=== PATIENT | female | born 1975 | race Caucasian/White ===

== ENCOUNTER 2020-02-05 01:05 | Emergency (ER) | payer MEDICAID ==
[~2020-02-05] VITALS: Ht 160 cm; Wt 72.6 kg
[2020-02-05 01:20] VITALS: BP 157/96
--- NOTE | 2020-02-05 01:28 | NUR ---
pt ambulated to ed restroom with steady gait
--- NOTE | 2020-02-05 01:37 | NUR ---
LAB AT BEDSIDE.
--- NOTE | 2020-02-05 01:38 | NUR ---
UA GIVEN TO LAB.
--- NOTE | 2020-02-05 01:41 | NUR ---
39 YO F BIB SELF WITH C/C OF 12/19 RLQ ABD PAIN X5DAYS. PT STATED PAIN STARTED 01/30 AND WENT AWAY AFTER TAKING DICYCLOMINE PRESCRIBED BY PRIMARY PROVIDER; PAIN RETURNED 02/03 AT 8PM. PT STATED SHE TOOK IBUPROFEN WITHOUT RELIEF. +DIARRHEA, -FEVER, +DIZZINESS, -CHILLS. ABD FLAT. BOWEL SOUNDS ACTIVE X3, RLQ BOWEL SOUNDS DECREASED. PAIN ON PALPATION TO RLQ. PT STATED SHE FEELS THE NEED TO URINATE BUT IS UNABLE, DENIES BLOOD IN URINE. ON MONITOR AND PULSE OX. BED LOCKED IN LOWEST POSITION, SIDE RIALS X2. HX: DENIES RX: DICYCLOMINE, OMEPRAZOLE NKA LMP: 01/20/20
[2020-02-05 01:46] LABS: APPEARANCE,URINE SL CLOUDY (CLEAR); BILIRUBIN,URINE NEGATIVE (NEGATIVE); BLOOD, URINE 1+ (NEGATIVE); COLOR,URINE YELLOW (YELLOW); LEUKOCYTE ESTERASE ,URINE NEGATIVE (NEGATIVE); NITRITE, URINE NEGATIVE (NEGATIVE); PH,URINE 6.5 (5.0-9.0); UGLUCOSE NEGATIVE (NEGATIVE)
[2020-02-05 01:48] LABS: BASOPHILS % (AUTO) 0.4 % (0.0-2.0); EOSINOPHILS # (AUTO) 0.1 K/uL (0-0.4); EOSINOPHILS % (AUTO) 0.9 % (0.0-4.0); HEMATOCRIT 40.3 % (36-48); HEMOGLOBIN 13.4 g/dL (12.0-16.0); LYMPHOCYTES # (AUTO) 1.2 K/uL (2.5-16.5); MEAN CORPUSCULAR HEMOGLOBIN 28 pg (27-31); MEAN CORPUSCULAR HGB CONC 33 g/dL (33-37); MEAN CORPUSCULAR VOLUME 82.7 fL (80-94); MONOCYTES # (AUTO) 0.7 K/uL (0.8-1.0); MONOCYTES % (AUTO) 6.5 % (1.7-9.3); NEUTROPHILS # (AUTO) 8.2 K/uL (1.8-7.7); NEUTROPHILS % (AUTO) 80.2 % (42.2-75.2); PLATELET COUNT (AUTO) 286 K/uL (140-450); RED BLOOD CELL COUNT(AUTO) 4.87 MIL/uL (4.20-5.40); RED CELL DISTRIBUTION WIDTH 13.1 % (11.6-13.7); WHITE BLOOD COUNT (AUTO) 10.2 K/uL (4.8-10.8)
[2020-02-05] MEDS ORDERED: ONDANSETRON 4 MG/2 ML VIAL IVP ONE (02:00)
[2020-02-05] MEDS ORDERED: MORPHINE SULFATE 4 MG/ML SYR IVP ONE (02:00)
[2020-02-05 02:16] LABS: ALBUMIN 4.2 g/dL (3.4-5.0); ANION GAP 15.6 (8-16); CARBON DIOXIDE 23.8 mmol/L (21-32); CREATININE 1.2 mg/dL (0.6-1.3); POTASSIUM 3.4 mmol/L (3.5-5.1); TOTAL BILIRUBIN 0.4 mg/dL (0.0-1.0)
[2020-02-05 02:17] LABS: WBC,URINE 0-5 /HPF (0-5)
--- NOTE | 2020-02-05 02:44 | NUR ---
ROHAN SALGADO AT BEDSIDE
--- NOTE | 2020-02-05 02:48 | NUR ---
ERMD AT BEDSIDE FOR RE-EVALUATION
[2020-02-05] MEDS ORDERED: NACL 0.9% 1,000 ML IV ONE (02:50)
--- NOTE | 2020-02-05 02:53 | NUR ---
pt ambulated to the ed restroom with a steady gait
--- NOTE | 2020-02-05 02:56 | NUR ---
PT RETURNED FROM RR WITH STEADY GAIT. PT TAKEN TO CT VIA WHEELCHAIR.
--- NOTE | 2020-02-05 03:04 | NUR ---
pt returned from ct via w/c
--- NOTE | 2020-02-05 03:42 | NUR ---
PT AMBULATED TO ED RESTROOM WITH STEADY GAIT
--- NOTE | 2020-02-05 03:50 | NUR ---
PT AMBULATED BACK TO ED BED 11 FROM ED RESTROOM WITH STEADY GAIT
--- NOTE | 2020-02-05 03:50 | NUR ---
Note carole in EDM - 02/05/20 at 0350 by [facility] AMBULATED BACK TO ED BED 11 FROM ED RESTROOM WITH STEADY GAIT
--- NOTE | 2020-02-05 04:11 | NUR ---
ERMD AT BEDSIDE FOR RE-EVALUATION
[2020-02-05 04:32] VITALS: BP 135/77
--- NOTE | 2020-02-05 04:32 | NUR ---
Patient discharged with v/s stable. Written and verbal after care instructions given and explained. Patient verbalized understanding. Ambulatory with steady gait. All questions addressed prior to discharge. Advised to follow up with PMD.
== END 2020-02-05 04:32 | disposition home or self-care (01) ==
LOC: MED 01:05
DX: R10.31 Right lower quadrant pain (principal); N20.0 Calculus of kidney
CPT/HCPCS: 36415; 74176; 80053; 81001; 82150; 83690; 84703; 85025; 96361; 96374; 96375; 99285; J2270; J2405; J7030; 99284

== ENCOUNTER 2021-08-09 19:48 | Emergency (ER) | payer MEDICAID ==
[~2021-08-09] VITALS: Ht 157.5 cm; Wt 77.6 kg
[2021-08-09 20:15] VITALS: BP 140/93
--- NOTE | 2021-08-09 22:04 | NUR ---
Dr. Infante examining patient.
[2021-08-09] MEDS ORDERED: AMOX1TAB8 PO (22:09)
[2021-08-09] MEDS ORDERED: COROTSOL LEFT EAR (22:09)
[2021-08-09 22:10] VITALS: BP 132/82
--- NOTE | 2021-08-09 22:10 | NUR ---
Patient discharged with v/s stable. Written and verbal after care instructions given and explained by Dr. Infante. Patient alert, oriented and verbalized understanding of instructions. Ambulatory with steady gait. All questions addressed prior to discharge. ID band removed. Patient advised to follow up with PMD. Rx of Amox-Clav and Cortisporin given. Patient educated on indication of medication including possible reaction and side effects. Opportunity to ask questions provided and answered.
== END 2021-08-09 22:10 | disposition home or self-care (01) ==
LOC: MED 19:48
DX: H66.91 Otitis media, unspecified, right ear (principal); H60.91 Unspecified otitis externa, right ear; Z79.899 Other long term (current) drug therapy
CPT/HCPCS: 99283

== ENCOUNTER 2022-01-13 12:34 | Emergency (ER) | payer MEDICAID ==
[~2022-01-13] VITALS: Ht 157.5 cm; Wt 65.8 kg
[~2022-01-13 12:34] MED LIST: AMOX1TAB8 PO; COROTSOL LEFT EAR
[2022-01-13 12:44] VITALS: BP 146/95
[2022-01-13 12:52] VITALS: BP 142/80
--- NOTE | 2022-01-13 12:56 | NUR ---
PT AMBULATED TO BED 3 WITH STEADY GAIT
--- NOTE | 2022-01-13 12:57 | NUR ---
46 Y/O FEMALE BIB SELF C/O BILATERAL EAR PAIN X1 WEEK. DENIES ANY HEARING LOSS, DISCHARGE. PER PT SHE TOOK NAPROXEN FOR PAIN RELIEF BUT NO RELIEF OF PRESSURE IN EARS. DENIES FEVERS, CHILLS, COUGH, OR CONGESTION PMH: DENIES NKA
--- NOTE | 2022-01-13 14:14 | NUR ---
ERIK ORTIZ AT BEDSIDE FOR EVAL
--- NOTE | 2022-01-13 14:27 | NUR ---
Patient discharged with v/s stable. Written and verbal after care instructions ABOUT EARACHE given and explained. Patient verbalized understanding. Ambulatory with steady gait. All questions addressed prior to discharge. Advised to follow up with PMD.
== END 2022-01-13 14:27 | disposition home or self-care (01) ==
LOC: MED 12:34
DX: H92.03 Otalgia, bilateral (principal)
CPT/HCPCS: 99281

== ENCOUNTER 2022-05-29 17:54 | Emergency (ER) | payer MEDICAID ==
[~2022-05-29] VITALS: Ht 157.5 cm; Wt 66.2 kg
[2022-05-29 17:59] VITALS: BP 132/68
--- NOTE | 2022-05-29 18:02 | NUR ---
47/F WALKED IN C/O RIGHT BIG TOE PAIN AND SWELLING X 1 WK. DENIES TRAUMA OR INJURY TO TOE. PMH: DENIES
[2022-05-29] MEDS ORDERED: LIDOCAINE 1% 500 MG/ 50 ML VIAL INJ ONE (18:30)
[2022-05-29] MEDS ORDERED: IBUP-2213 PO ×2 (19:34→22:13)
[2022-05-29] MEDS ORDERED: CEPH-588 PO ×2 (19:34→22:13)
--- NOTE | 2022-05-29 21:20 | NUR ---
Per ER instructions, no suture needed at this time. pt to be discharged with antibiotics and pain medications. pt made aware via warehouse technician and verbalized understanding
--- NOTE | 2022-05-29 21:34 | NUR ---
Patient discharged with v/s stable. Written and verbal after care instructions given and explained. Patient alert, oriented and verbalized understanding of instructions. Ambulatory with steady gait. All questions addressed prior to discharge. ID band removed. Patient advised to follow up with PMD. Rx of keflex and ibuprofen given. Patient educated on indication of medication including possible reaction and side effects. Opportunity to ask questions provided and answered.
== END 2022-05-29 21:34 | disposition home or self-care (01) ==
LOC: MED 17:54
DX: L60.0 Ingrowing nail (principal); R03.0 Elevated blood-pressure reading, without diagnosis of hypertension; Z79.1 Long term (current) use of non-steroidal anti-inflammatories (NSAID); Z79.2 Long term (current) use of antibiotics
CPT/HCPCS: 99283

== ENCOUNTER 2023-02-14 09:32 | Emergency (ER) | payer MEDICAID ==
[~2023-02-14] VITALS: Ht 152.4 cm; Wt 65.3 kg
[~2023-02-14 09:32] MED LIST changes: +CEPH-588 PO; +IBUP-2213 PO
[2023-02-14 09:59] VITALS: BP 140/79; PULSE 88; RESP 18; TEMP 98.3; O2SAT 99
[2023-02-14 11:30] LABS: BILIRUBIN,URINE NEGATIVE (NEGATIVE); BLOOD, URINE 3+ (NEGATIVE); LEUKOCYTE ESTERASE ,URINE 2+ (NEGATIVE); NITRITE, URINE POSITIVE (NEGATIVE); PROTEIN,URINE NEGATIVE (NEGATIVE); UGLUCOSE NEGATIVE (NEGATIVE); UROBILINOGEN,URINE 0.2 EU/dL (0.2 - 1)
[2023-02-14 11:33] LABS: APPEARANCE,URINE CLEAR (CLEAR); COLOR,URINE YELLOW (YELLOW)
[2023-02-14 11:44] LABS: WBC,URINE 20-60 /HPF (0-5)
[2023-02-14 11:45] LABS: BACTERIA,URINE 2+ /HPF (None Seen); SQUAMOUS EPITHELIAL CELL,UR 50-80 /LPF (0-3 (FEW))
[2023-02-14 12:33] LABS: BASOPHILS # (AUTO) 0.1 K/uL (0.00-0.22); BASOPHILS % (AUTO) 0.6 % (0.0-2.0); EOSINOPHILS # (AUTO) 0.2 K/uL (0-0.4); EOSINOPHILS % (AUTO) 1.7 % (0.0-4.0); HEMATOCRIT 41.2 % (36-48); HEMOGLOBIN 13.5 g/dL (12.0-16.0); LYMPHOCYTES # (AUTO) 1.4 K/uL (2.5-16.5); LYMPHOCYTES % (AUTO) 15.1 % (20.5-51.1); MEAN CORPUSCULAR HEMOGLOBIN 27 pg (27-31); MEAN CORPUSCULAR HGB CONC 33 g/dL (33-37); MEAN CORPUSCULAR VOLUME 82.3 fL (80-94); MONOCYTES # (AUTO) 0.7 K/uL (0.8-1.0); MONOCYTES % (AUTO) 7.9 % (1.7-9.3); NEUTROPHILS # (AUTO) 6.7 K/uL (1.8-7.7); NEUTROPHILS % (AUTO) 74.7 % (42.2-75.2); PLATELET COUNT (AUTO) 294 K/uL (140-450); RED CELL DISTRIBUTION WIDTH 14.3 % (11.6-13.7)
[2023-02-14 12:46] LABS: ANION GAP 10.1 (8-16); CALCIUM 8.7 mg/dL (8.5-10.1); CARBON DIOXIDE 28.9 mmol/L (21-32); CREATININE 0.7 mg/dL (0.6-1.3)
[2023-02-14] MEDS ORDERED: KETOROLAC 30 MG/ML VIAL IM ONE (13:40)
[2023-02-14] MEDS ORDERED: IBUP-2213 PO (14:13)
[2023-02-14] MEDS ORDERED: CEPH-588 PO (14:13)
[2023-02-14] MEDS ORDERED: PYR100 PO (14:13)
== END 2023-02-14 14:29 | disposition home or self-care (01) ==
LOC: MED 09:32
DX: N39.0 Urinary tract infection, site not specified (principal); Z79.899 Other long term (current) drug therapy; Z79.2 Long term (current) use of antibiotics; Z79.1 Long term (current) use of non-steroidal anti-inflammatories (NSAID)
CPT/HCPCS: 36415; 76770; 80048; 81001; 81025; 85025; 87086; 96372; 99285; J1885; Q0092